=== PATIENT | female | born 1990 | race Caucasian/White ===

== ENCOUNTER 2018-05-01 23:35 | Emergency (ER) | payer OTHER ==
[2018-05-02] MEDS: IBUPROFEN 600 MG TAB PO (00:34)
== END 2018-05-02 02:23 | disposition home or self-care (01) ==
LOC: FTE 23:35
DX: S63.502A Unspecified sprain of left wrist, initial encounter (principal); X58.XXXA Exposure to other specified factors, initial encounter; Y92.89 Other specified places as the place of occurrence of the external cause
CPT/HCPCS: 29125; 73110-LT; 99283-25